=== PATIENT | male | born 1965 | race Two or more races ===

== ENCOUNTER 2023-09-13 12:20 | Inpatient (IN) | payer OTHER ==
[2023-09-13 13:30] VITALS: BMI 19.1
[2023-09-13] MEDS ORDERED: IBUPROFEN 600 MG TABLET (FP) PO PRN (15:01)
[2023-09-13] MEDS ORDERED: DICYCLOMINE HCL 10 MG CAPSULE PO PRN (15:01)
[2023-09-13] MEDS ORDERED: MAGNESIUM HYDROX 2400MG/30ML ORAL SUSPENSION 30 ML CUP PO PRN (15:01)
[2023-09-13] MEDS ORDERED: METHOCARBAMOL 500 MG TABLET PO PRN (15:01)
[2023-09-13] MEDS ORDERED: BENZOCAINE/MENTHOL (CHLORASEPTIC ) LOZENGE MM PRN (15:01)
[2023-09-13] MEDS ORDERED: POLYETHYLENE GLYCOL (HEALTHYLAX) 3350 17 GM PACKET PO PRN (15:01)
[2023-09-13] MEDS ORDERED: IBUPROFEN 400 MG TABLET (FP) PO PRN (15:01)
[2023-09-13] MEDS ORDERED: NALOXONE HCL 0.4 MG/ML VIAL IM PRN (15:01)
[2023-09-13] MEDS ORDERED: guaiFENesin 600 MG TABLET.ER (FP) PO PRN (15:01)
[2023-09-13] MEDS ORDERED: NALOXONE HCL (KLOXXADO) 8 MG SPRAY NS PRN (15:01)
[2023-09-13] MEDS ORDERED: BENZONATATE 200 MG CAPSULE PO PRN (15:01)
[2023-09-13] MEDS ORDERED: BISMUTH SUBSALICYLATE 524 MG/30 ML PO PRN (15:01)
[2023-09-13] MEDS ORDERED: MAG HYDROX/AL HYDROX/SIMETH 30 ML UNIT-DOSE CUP PO PRN (15:01)
[2023-09-13] MEDS ORDERED: ACETAMINOPHEN 325 MG TABLET (FP) PO PRN (15:01)
[2023-09-13] MEDS ORDERED: LOPERAMIDE HCL 2 MG CAPSULE PO PRN (15:01)
[2023-09-13] MEDS ORDERED: ONDANSETRON *ODT* 4 MG TABLET SL PRN (15:01)
[2023-09-13] MEDS: hydrOXYzine PAMOATE 25 MG CAPSULE (FP) PO PRN (17:46)
[2023-09-13] MEDS ORDERED: methaDONE HCL 10 MG TABLET (FOR DETOX USE ONLY) PO ONE (18:32)
[2023-09-13] MEDS ORDERED: TAMSULOSIN HCL 0.4 MG CAP PO SCH (22:00)
[2023-09-13] MEDS ORDERED: THIAMINE HCL 100 MG TABLET (FP) PO SCH (22:00)
[2023-09-13] MEDS ORDERED: MELATONIN 5 MG TABLETS PO SCH (22:00)
[2023-09-14] MEDS: cloNIDine HCL 0.1 MG TABLET PO PRN ×2 (01:06→09:21)
[2023-09-14] MEDS: hydrOXYzine PAMOATE 25 MG CAPSULE (FP) PO PRN ×2 (01:06→09:21)
[2023-09-14 09:35] VITALS: BP 134/99; PULSE 74; RESP 19; TEMP 97.3
[2023-09-14] MEDS ORDERED: PRENATAL VITAMINS W/ FOLIC ACID TABLET (FP) PO SCH (10:00)
[2023-09-14 10:15] LABS: POTASSIUM 3.8 mmol/L (3.5-5.1)
[2023-09-14 10:19] LABS: BLOOD UREA NITROGEN 11.3 mg/dL (7-18); CALCIUM 8.2 mg/dL (8.5-10.1)
[2023-09-14 10:20] LABS: ALBUMIN 2.4 g/dl (3.4-5.0)
[2023-09-14 10:22] LABS: HEMATOCRIT 35.1 % (35.4-49); HEMOGLOBIN 11.4 GM/dL (11.7-16.9); MCH 28.8 pg (25.7-33.7); MCHC 32.4 g/dl (32.0-35.9); MEAN CELL VOLUME 88.8 fl (80-96); MEAN PLT VOLUME 6.8 fl (7.5-11.1); PLATELET COUNT 417 10^3/uL (134-434); RBC 3.95 M/mm3 (4.00-5.60); RDW 14.5 % (11.9-15.9); WHITE BLOOD COUNT 4.1 K/mm3 (4.0-10.0)
[2023-09-14 10:23] LABS: CREATININE 0.7 mg/dL (0.55-1.3)
[2023-09-14 10:24] LABS: BILIRUBIN,TOTAL 0.4 mg/dL (0.2-1); TOT PROT 6.1 g/dl (6.4-8.2)
[2023-09-15] MEDS ORDERED: methaDONE HCL 10 MG TABLET (FOR DETOX USE ONLY) PO ONE (10:00)
[2023-09-17] MEDS ORDERED: methaDONE HCL 10 MG TABLET (FOR DETOX USE ONLY) PO ONE (10:00)
== END 2023-09-14 12:50 | disposition left against medical advice (07) | DRG 770 ==
LOC: YASAS 12:20 → Y6N 15:46
PROVIDERS: ADMIT Allergy & Immunology; ATTEND Surgery
PROC: HZ2ZZZZ Detoxification Services for Substance Abuse Treatment (ICD-10-PCS; principal; 2023-09-13)
DX: F11.23 Opioid dependence with withdrawal (principal); F17.210 Nicotine dependence, cigarettes, uncomplicated; Z59.00 Homelessness unspecified
CPT/HCPCS: 36415; 80053; 85027; 86780; 87635; 93005; 93010; Q0162

== ENCOUNTER 2024-03-03 16:34 | Observation (INO) | payer OTHER ==
[2024-03-03] MEDS: ONDANSETRON 4 MG TABLET PO ONE (21:44)
[2024-03-03 23:11] LABS: VENOUS BASE EXCESS 1.1 mmol/L (-2-2); VENOUS O2 SATURATION 46.8 % (70-80); VENOUS PH 7.389 (7.310-7.410)
[2024-03-03 23:13] LABS: BASO % 0.5 % (0-2.0); EOS % 0.1 % (0-4.5); HEMOGLOBIN 15.1 GM/dL (11.7-16.9); LYMPH % 8.6 % (8-40); MCH 28.5 pg (25.7-33.7); MCHC 32.8 g/dl (32.0-35.9); MEAN CELL VOLUME 86.8 fl (80-96); MEAN PLT VOLUME 6.6 fl (7.5-11.1); MONO % 4.8 % (3.8-10.2); PLATELET COUNT 338 10^3/uL (134-434); RDW 16.5 % (11.9-15.9); WHITE BLOOD COUNT 9.8 K/mm3 (4.0-10.0)
[2024-03-03 23:30] LABS: POTASSIUM 4.4 mmol/L (3.5-5.1)
[2024-03-03 23:31] LABS: CALCIUM 9.7 mg/dL (8.5-10.1)
[2024-03-03 23:32] LABS: ALBUMIN 3.6 g/dl (3.4-5.0); BLOOD UREA NITROGEN 16.2 mg/dL (7-18)
[2024-03-03 23:35] LABS: CREATININE 0.8 mg/dL (0.55-1.3)
[2024-03-03 23:37] LABS: BILIRUBIN,TOTAL 0.7 mg/dL (0.2-1); TOT PROT 7.7 g/dl (6.4-8.2)
[2024-03-04 03:31] VITALS: BMI 17.6
[2024-03-04] MEDS: TRIMETHOBENZAMIDE HCL 200MG/2ML INJ IM ONE (04:39)
[2024-03-04] MEDS: INSULIN ASPART SLIDING SCALE (NOVOLOG) 1 VIAL SQ SCH (07:17)
[2024-03-04] MEDS ORDERED: BISMUTH SUBSALICYLATE 524 MG/30 ML PO PRN (08:13)
[2024-03-04] MEDS ORDERED: NALOXONE HCL 0.4 MG/ML VIAL IM PRN (08:13)
[2024-03-04] MEDS ORDERED: NALOXONE HCL (KLOXXADO) 8 MG SPRAY NS PRN (08:13)
[2024-03-04] MEDS ORDERED: BENZOCAINE/MENTHOL (CHLORASEPTIC ) LOZENGE MM PRN (08:13)
[2024-03-04] MEDS ORDERED: MAGNESIUM HYDROX 2400MG/30ML ORAL SUSPENSION 30 ML CUP PO PRN (08:13)
[2024-03-04] MEDS ORDERED: guaiFENesin 600 MG TABLET.ER (FP) PO PRN (08:13)
[2024-03-04] MEDS ORDERED: DICYCLOMINE HCL 10 MG CAPSULE PO PRN (08:13)
[2024-03-04] MEDS ORDERED: METHOCARBAMOL 500 MG TABLET PO PRN (08:13)
[2024-03-04] MEDS ORDERED: MAG HYDROX/AL HYDROX/SIMETH 30 ML UNIT-DOSE CUP PO PRN (08:13)
[2024-03-04] MEDS ORDERED: BENZONATATE 200 MG CAPSULE PO PRN (08:13)
[2024-03-04] MEDS ORDERED: ONDANSETRON *ODT* 4 MG TABLET SL PRN (08:13)
[2024-03-04] MEDS ORDERED: hydrOXYzine PAMOATE 25 MG CAPSULE (FP) PO PRN (08:13)
[2024-03-04] MEDS: methaDONE HCL 10 MG TABLET PO ONE (09:02)
[2024-03-04] MEDS: ENOXAPARIN NA (PORCINE) 40 MG/0.4 ML DISP.SYRIN SQ SCH (09:02)
[2024-03-04] MEDS: THIAMINE HCL 100 MG TABLET (FP) PO SCH ×2 (09:04→23:09)
[2024-03-04] MEDS: FOLIC ACID 1 MG TABLET (FP) PO SCH (09:06)
[2024-03-04 09:54] LABS: BASO % 0.1 % (0-2.0); HEMATOCRIT 44.1 % (35.4-49); HEMOGLOBIN 14.7 GM/dL (11.7-16.9); LYMPH % 9.2 % (8-40); MCH 28.7 pg (25.7-33.7); MCHC 33.3 g/dl (32.0-35.9); MEAN CELL VOLUME 86.1 fl (80-96); MEAN PLT VOLUME 7.5 fl (7.5-11.1); MONO % 6.9 % (3.8-10.2); NEUT % 83.8 % (42.8-82.8); PLATELET COUNT 358 10^3/uL (134-434); RBC 5.13 M/mm3 (4.00-5.60); RDW 16.6 % (11.9-15.9); WHITE BLOOD COUNT 8.1 K/mm3 (4.0-10.0)
[2024-03-04] MEDS: FOLIC ACID INJECTION - 1 MG, THIAMINE HCL 100 MG, MULTIVIT INJECTION ADULT 10 ML in SOD... IVPB ONE (10:03)
[2024-03-04 10:15] LABS: POTASSIUM 3.6 mmol/L (3.5-5.1)
[2024-03-04 10:50] LABS: CALCIUM 9.4 mg/dL (8.5-10.1)
[2024-03-04 10:51] LABS: ALBUMIN 3.4 g/dl (3.4-5.0); BLOOD UREA NITROGEN 16.9 mg/dL (7-18)
[2024-03-04 10:54] LABS: CREATININE 0.7 mg/dL (0.55-1.3); PHOSPHOROUS 3.2 mg/dL (2.5-4.9)
[2024-03-04 10:55] LABS: BILIRUBIN,TOTAL 0.6 mg/dL (0.2-1); TOT PROT 7.2 g/dl (6.4-8.2)
[2024-03-04] MEDS: AMINO ACIDS/PROTEIN HYDROLYS 30 ML LIQUID.PKT PO SCH (11:47)
[2024-03-04] MEDS: FLUoxetine HCL 20 MG CAPSULE PO SCH (12:24)
[2024-03-04] MEDS: PRENATAL VITAMINS W/ FOLIC ACID TABLET (FP) PO SCH (12:24)
[2024-03-04] MEDS: ACETAMINOPHEN 325 MG TABLET (FP) PO PRN (12:26)
[2024-03-04] MEDS: IBUPROFEN 600 MG TABLET (FP) PO PRN (14:06)
[2024-03-04] MEDS: hydrALAZINE HCL 25 MG TABLET (FP) PO PRN (14:06)
[2024-03-04] MEDS: cloNIDine HCL 0.1 MG TABLET PO PRN (15:36)
[2024-03-04] MEDS: TAMSULOSIN HCL 0.4 MG CAP PO SCH (23:09)
[2024-03-04] MEDS: MELATONIN 5 MG TABLETS PO SCH (23:09)
[2024-03-05 03:42] LABS: URINE APPEARANCE CLEAR; URINE BILIRUBIN NEGATIVE (NEGATIVE); URINE COLOR YELLOW; URINE GLUCOSE (UA) NEGATIVE (NEGATIVE); URINE KETONE NEGATIVE (NEGATIVE); URINE LEUK ESTERASE NEGATIVE (NEGATIVE); URINE NITRITE NEGATIVE (NEGATIVE); URINE PROTEIN NEGATIVE (NEGATIVE)
[2024-03-05 03:54] LABS: URINE AMPHETAMINES NEGATIVE (NEGATIVE)
[2024-03-05 03:55] LABS: OPIATES, URI NEGATIVE (NEGATIVE); PHENCYCLIDINE,URINE NEGATIVE (NEGATIVE); URINE BARBITURATES NEGATIVE (NEGATIVE); URINE BENZODIAZEPINES NEGATIVE (NEGATIVE)
[2024-03-05 04:06] LABS: COCAINE, UR POSITIVE (NEGATIVE)
[2024-03-05 04:07] LABS: METHADONE, UR POSITIVE (NEGATIVE)
[2024-03-05 09:50] LABS: BASO % 0.3 % (0-2.0); EOS % 0.3 % (0-4.5); HEMATOCRIT 40.4 % (35.4-49); HEMOGLOBIN 12.9 GM/dL (11.7-16.9); MEAN CELL VOLUME 87.7 fl (80-96); MEAN PLT VOLUME 7.3 fl (7.5-11.1); MONO % 7.9 % (3.8-10.2); NEUT % 74.5 % (42.8-82.8); PLATELET COUNT 297 10^3/uL (134-434); RBC 4.61 M/mm3 (4.00-5.60); RDW 16.7 % (11.9-15.9); WHITE BLOOD COUNT 6.7 K/mm3 (4.0-10.0)
[2024-03-05 10:29] LABS: CALCIUM 8.7 mg/dL (8.5-10.1)
[2024-03-05 10:30] LABS: ALBUMIN 2.8 g/dl (3.4-5.0); BLOOD UREA NITROGEN 22.2 mg/dL (7-18); MAGNESIUM 1.8 mg/dL (1.8-2.4)
[2024-03-05 10:33] LABS: CREATININE 0.9 mg/dL (0.55-1.3)
[2024-03-05 10:35] LABS: BILIRUBIN,TOTAL 0.5 mg/dL (0.2-1)
[2024-03-05] MEDS: methaDONE HCL 10 MG TABLET PO ONE ×3 (13:04→22:12)
[2024-03-05 14:38] VITALS: RESP 18
[2024-03-05] MEDS: LOPERAMIDE HCL 2 MG CAPSULE PO PRN (22:12)
[2024-03-05] MEDS: IBUPROFEN 400 MG TABLET (FP) PO PRN (22:13)
[2024-03-06] MEDS: methaDONE HCL 10 MG TABLET PO ONE ×2 (06:32→08:36)
[2024-03-06 07:38] VITALS: BP 121/78; PULSE 67; TEMP 97.8
[2024-03-06 08:57] LABS: BASO % 0.4 % (0-2.0); EOS % 1.8 % (0-4.5); HEMATOCRIT 37.4 % (35.4-49); HEMOGLOBIN 12.1 GM/dL (11.7-16.9); LYMPH % 14.1 % (8-40); MCH 28.6 pg (25.7-33.7); MCHC 32.3 g/dl (32.0-35.9); MEAN CELL VOLUME 88.5 fl (80-96); MEAN PLT VOLUME 7.3 fl (7.5-11.1); MONO % 9.9 % (3.8-10.2); NEUT % 73.8 % (42.8-82.8); PLATELET COUNT 267 10^3/uL (134-434); RBC 4.23 M/mm3 (4.00-5.60); RDW 16.5 % (11.9-15.9); WHITE BLOOD COUNT 6.1 K/mm3 (4.0-10.0)
[2024-03-06 09:11] LABS: POTASSIUM 4.3 mmol/L (3.5-5.1)
[2024-03-06 09:16] LABS: BLOOD UREA NITROGEN 25.5 mg/dL (7-18); CALCIUM 8.1 mg/dL (8.5-10.1)
[2024-03-06 09:17] LABS: ALBUMIN 2.7 g/dl (3.4-5.0)
[2024-03-06 09:19] LABS: CREATININE 0.7 mg/dL (0.55-1.3)
[2024-03-06 09:20] LABS: BILIRUBIN,TOTAL 0.3 mg/dL (0.2-1); TOT PROT 5.7 g/dl (6.4-8.2)
== END 2024-03-06 10:28 | disposition left against medical advice (07) ==
LOC: JER 16:34 → JERBED 03-04 00:42 → J5S 03-04 02:40
PROVIDERS: ADMIT Internal Medicine; ATTEND Internal Medicine
PROC: 3E033GC Introduction of Other Therapeutic Substance into Peripheral Vein, Percutaneous Approach (ICD-10-PCS; principal; 2024-03-04)
PROC: 3E0337Z Introduction of Electrolytic and Water Balance Substance into Peripheral Vein, Percutaneous Approach (ICD-10-PCS; 2024-03-04)
DX: T40.2X1A Poisoning by other opioids, accidental (unintentional), initial encounter (principal); X58.XXXA Exposure to other specified factors, initial encounter; Y99.8 Other external cause status; F19.20 Other psychoactive substance dependence, uncomplicated; E46 Unspecified protein-calorie malnutrition; F14.929 Cocaine use, unspecified with intoxication, unspecified; F11.90 Opioid use, unspecified, uncomplicated; B19.20 Unspecified viral hepatitis C without hepatic coma; F10.20 Alcohol dependence, uncomplicated; F17.210 Nicotine dependence, cigarettes, uncomplicated; G92.8 Other toxic encephalopathy
CPT/HCPCS: 36415; 80048; 80053; 80307; 81003; 82803; 82962; 83036; 83735; 84100; 85025; 86708; 86803; 87086; 87350; 87522; 93005; 93010; 96361; 96365; 99285-25; G0378

== ENCOUNTER 2024-06-15 11:47 | Inpatient (IN) | payer OTHER ==
[2024-06-15 12:13] VITALS: BMI 19.5
[2024-06-15] MEDS ORDERED: MAG HYDROX/AL HYDROX/SIMETH 30 ML UNIT-DOSE CUP PO PRN (12:54)
[2024-06-15] MEDS ORDERED: ACETAMINOPHEN 325 MG TABLET (FP) PO PRN (12:54)
[2024-06-15] MEDS ORDERED: LOPERAMIDE HCL 2 MG CAPSULE PO PRN (12:54)
[2024-06-15] MEDS ORDERED: DICYCLOMINE HCL 10 MG CAPSULE PO PRN (12:54)
[2024-06-15] MEDS ORDERED: NICOTINE POLACRILEX 2 MG GUM BUC PRN (12:54)
[2024-06-15] MEDS ORDERED: guaiFENesin 600 MG TABLET.ER (FP) PO PRN (12:54)
[2024-06-15] MEDS ORDERED: IBUPROFEN 600 MG TABLET (FP) PO PRN (12:54)
[2024-06-15] MEDS ORDERED: ONDANSETRON *ODT* 4 MG TABLET SL PRN (12:54)
[2024-06-15] MEDS ORDERED: NALOXONE (NARCAN) HCL 4 MG/0.1 ML SPRAY NS PRN (12:54)
[2024-06-15] MEDS ORDERED: IBUPROFEN 400 MG TABLET (FP) PO PRN (12:54)
[2024-06-15] MEDS ORDERED: NICOTINE POLACRILEX 2 MG LOZENGE BC PRN (12:54)
[2024-06-15] MEDS ORDERED: POLYETHYLENE GLYCOL (HEALTHYLAX) 3350 17 GM PACKET PO PRN (12:54)
[2024-06-15] MEDS ORDERED: BISMUTH SUBSALICYLATE 524 MG/30 ML PO PRN (12:54)
[2024-06-15] MEDS ORDERED: NALOXONE HCL 0.4 MG/ML VIAL IM PRN (12:54)
[2024-06-15] MEDS ORDERED: BENZONATATE 200 MG CAPSULE PO PRN (12:54)
[2024-06-15] MEDS ORDERED: BENZOCAINE/MENTHOL (CHLORASEPTIC ) LOZENGE MM PRN (12:54)
[2024-06-15] MEDS ORDERED: MAGNESIUM HYDROX 2400MG/30ML ORAL SUSPENSION 30 ML CUP PO PRN (12:54)
[2024-06-15] MEDS: cloNIDine HCL 0.1 MG TABLET PO PRN (15:38)
[2024-06-15] MEDS: THIAMINE 100 MG TABLET PO SCH (23:07)
[2024-06-15] MEDS: MELATONIN 5 MG TABLETS PO SCH (23:07)
[2024-06-15] MEDS: TAMSULOSIN HCL 0.4 MG CAP PO SCH (23:07)
[2024-06-15] MEDS: METHOCARBAMOL 500 MG TABLET PO PRN (23:32)
[2024-06-16] MEDS: methaDONE HCL 10 MG TABLET (FOR DETOX USE ONLY) PO ONE (09:45)
[2024-06-16] MEDS: PRENATAL VITAMINS W/ FOLIC ACID TABLET (FP) PO SCH (09:47)
[2024-06-16] MEDS: hydrOXYzine PAMOATE 25 MG CAPSULE (FP) PO PRN (09:47)
[2024-06-16] MEDS: cloNIDine HCL 0.1 MG TABLET PO PRN (09:49)
[2024-06-16 11:40] LABS: POTASSIUM 3.6 mmol/L (3.5-5.1)
[2024-06-16 11:50] LABS: HEMATOCRIT 39.8 % (35.4-49); MCH 29.1 pg (25.7-33.7); MCHC 32.6 g/dl (32.0-35.9); MEAN CELL VOLUME 89.1 fl (80-96); MEAN PLT VOLUME 7.7 fl (7.5-11.1); PLATELET COUNT 341 10^3/uL (134-434); RBC 4.47 M/mm3 (4.00-5.60); RDW 14.2 % (11.9-15.9)
[2024-06-16 11:56] LABS: TOT PROT 6.7 g/dl (6.4-8.2)
[2024-06-16 12:04] LABS: ALBUMIN 3.2 g/dl (3.4-5.0)
[2024-06-16 12:11] LABS: CALCIUM 9.2 mg/dL (8.5-10.1)
[2024-06-16 12:25] LABS: CREATININE 0.8 mg/dL (0.55-1.3)
[2024-06-16 12:26] LABS: BILIRUBIN,TOTAL 0.6 mg/dL (0.2-1)
[2024-06-17] MEDS: P-EPHED 60MG/TRIPROLIDI 2.5MG TABLET PO PRN (10:46)
[2024-06-18] MEDS: methaDONE HCL 10 MG TABLET (FOR DETOX USE ONLY) PO ONE (09:36)
[2024-06-18] MEDS: CARBAMIDE PEROXIDE 6.5% OTIC 15 ML BOTTLE AU SCH (12:44)
[2024-06-19 12:37] VITALS: RESP 16
[2024-06-19 16:56] VITALS: BP 134/84; PULSE 85; TEMP 99.3
[2024-06-19] MEDS ORDERED: BACITRACIN ZINC 15 GM TUBE TOPICAL OINTMENT TP SCH (22:00)
[2024-06-19] MEDS ORDERED: CEPHALEXIN MONOHYDRATE 500 MG CAPSULE (UD) PO SCH (22:00)
[2024-06-20] MEDS ORDERED: methaDONE HCL 10 MG TABLET (FOR DETOX USE ONLY) PO ONE (10:00)
== END 2024-06-19 16:51 | disposition home or self-care (01) | DRG 773 ==
LOC: YASAS 11:47 → Y3N 14:04
PROVIDERS: ADMIT Allergy & Immunology; ATTEND Surgery
PROC: HZ2ZZZZ Detoxification Services for Substance Abuse Treatment (ICD-10-PCS; principal; 2024-06-15)
DX: F10.230 Alcohol dependence with withdrawal, uncomplicated (principal); F11.20 Opioid dependence, uncomplicated; F14.20 Cocaine dependence, uncomplicated; F12.20 Cannabis dependence, uncomplicated; F17.210 Nicotine dependence, cigarettes, uncomplicated; N40.0 Benign prostatic hyperplasia without lower urinary tract symptoms
CPT/HCPCS: 36415; 80053; 80305; 80307; 85027; 86780

== ENCOUNTER 2024-09-13 08:40 | Inpatient (IN) | payer OTHER ==
[2024-09-13 09:13] VITALS: BMI 20.9
[2024-09-13] MEDS ORDERED: POLYETHYLENE GLYCOL (HEALTHYLAX) 3350 17 GM PACKET PO PRN (09:38)
[2024-09-13] MEDS ORDERED: BENZOCAINE/MENTHOL (CHLORASEPTIC ) LOZENGE MM PRN (09:38)
[2024-09-13] MEDS ORDERED: NALOXONE (NYS OPIOID OVERDOSE PROGRAM) 4 MG/0.1 ML SPRAY NS PRN (09:38)
[2024-09-13] MEDS ORDERED: BISMUTH SUBSALICYLATE 262 MG/15 ML BTL PO PRN (09:38)
[2024-09-13] MEDS ORDERED: IBUPROFEN 400 MG TABLET (FP) PO PRN (09:38)
[2024-09-13] MEDS ORDERED: BENZONATATE 200 MG CAPSULE PO PRN (09:38)
[2024-09-13] MEDS ORDERED: NICOTINE POLACRILEX 2 MG GUM BUC PRN (09:38)
[2024-09-13] MEDS ORDERED: LOPERAMIDE HCL 2 MG CAPSULE PO PRN (09:38)
[2024-09-13] MEDS ORDERED: guaiFENesin 600 MG TABLET.ER (FP) PO PRN (09:38)
[2024-09-13] MEDS ORDERED: ONDANSETRON *ODT* 4 MG TABLET SL PRN (09:38)
[2024-09-13] MEDS ORDERED: MAG HYDROX/AL HYDROX/SIMETH 30 ML UNIT-DOSE CUP PO PRN (09:38)
[2024-09-13] MEDS ORDERED: MAGNESIUM HYDROX 2400MG/30ML ORAL SUSPENSION 30 ML CUP PO PRN (09:38)
[2024-09-13] MEDS ORDERED: NALOXONE (NARCAN) HCL 4 MG/0.1 ML SPRAY NS PRN (09:38)
[2024-09-13] MEDS ORDERED: DICYCLOMINE HCL 10 MG CAPSULE PO PRN (09:38)
[2024-09-13] MEDS ORDERED: cloNIDine HCL 0.1 MG TABLET ONE (10:22)
[2024-09-13] MEDS: cloNIDine HCL 0.1 MG TABLET PO PRN (10:25)
[2024-09-13] MEDS: PRENATAL VITAMINS W/ FOLIC ACID TABLET (FP) PO SCH (10:46)
[2024-09-13] MEDS: methaDONE HCL 10 MG TABLET (FOR DETOX USE ONLY) PO ONE (11:07)
[2024-09-13] MEDS: hydrOXYzine PAMOATE 25 MG CAPSULE (FP) PO PRN (11:07)
[2024-09-13] MEDS: METHOCARBAMOL 500 MG TABLET PO PRN (11:08)
[2024-09-13] MEDS ORDERED: methaDONE HCL 10 MG TABLET (FOR DETOX USE ONLY) PO ONE ×2 (12:00→17:00)
[2024-09-13] MEDS: TAMSULOSIN HCL 0.4 MG CAP PO SCH (22:16)
[2024-09-13] MEDS: THIAMINE 100 MG TABLET PO SCH (22:17)
[2024-09-13] MEDS: MELATONIN 5 MG TABLETS PO SCH (22:17)
[2024-09-14] MEDS: IBUPROFEN 600 MG TABLET (FP) PO PRN (10:58)
[2024-09-14] MEDS: METHOCARBAMOL 500 MG TABLET PO PRN (14:32)
[2024-09-14 15:03] LABS: BASO % 0.8 % (0-2.0); EOS % 0.9 % (0-4.5); HEMATOCRIT 41.4 % (35.4-49); LYMPH % 15.6 % (8-40); MCH 27.5 pg (25.7-33.7); MCHC 31.5 g/dl (32.0-35.9); MEAN CELL VOLUME 87.4 fl (80-96); MEAN PLT VOLUME 7.3 fl (7.5-11.1); MONO % 5.1 % (3.8-10.2); NEUT % 77.6 % (42.8-82.8); PLATELET COUNT 359 10^3/uL (134-434); RBC 4.74 M/mm3 (4.00-5.60); RDW 14.8 % (11.9-15.9); WHITE BLOOD COUNT 5.9 K/mm3 (4.0-10.0)
[2024-09-14 15:37] LABS: POTASSIUM 4.3 mmol/L (3.5-5.1)
[2024-09-14 15:42] LABS: BLOOD UREA NITROGEN 15.3 mg/dL (7-18); CALCIUM 9.3 mg/dL (8.5-10.1)
[2024-09-14 15:45] LABS: CREATININE 0.8 mg/dL (0.55-1.3)
[2024-09-15] MEDS: ACETAMINOPHEN 325 MG TABLET (FP) PO PRN (03:52)
[2024-09-15] MEDS: methaDONE HCL 10 MG TABLET (FOR DETOX USE ONLY) PO ONE (10:23)
[2024-09-15] MEDS: diazePAM 5 MG TABLET PO PRN (10:50)
[2024-09-15] MEDS: NICOTINE POLACRILEX 4 MG GUM BUC PRN (11:15)
[2024-09-15] MEDS: FLU VACCINE (FLULAVAL) PF 45 MCG/0.5 ML SYRINGE 2024-2025 IM ONE (12:00)
[2024-09-16 10:05] VITALS: BP 122/75; PULSE 91; RESP 18; TEMP 97.5
[2024-09-16] MEDS: cloNIDine HCL 0.1 MG TABLET PO PRN (11:21)
[2024-09-16] MEDS: hydrOXYzine PAMOATE 50 MG CAPSULE (FP) PO PRN (12:26)
[2024-09-16] MEDS ORDERED: QUEtiapine FUMARATE 100 MG TABLET (FP) PO SCH (22:00)
[2024-09-17] MEDS ORDERED: methaDONE HCL 10 MG TABLET (FOR DETOX USE ONLY) PO ONE (10:00)
== END 2024-09-16 12:54 | disposition left against medical advice (07) | DRG 773 ==
LOC: YASAS 08:40 → Y3N 10:34
PROVIDERS: ADMIT Allergy & Immunology; ATTEND Surgery
PROC: HZ2ZZZZ Detoxification Services for Substance Abuse Treatment (ICD-10-PCS; principal; 2024-09-13)
DX: F11.23 Opioid dependence with withdrawal (principal); F14.20 Cocaine dependence, uncomplicated; F17.210 Nicotine dependence, cigarettes, uncomplicated; F19.282 Other psychoactive substance dependence with psychoactive substance-induced sleep disorder; F19.24 Other psychoactive substance dependence with psychoactive substance-induced mood disorder; M54.50 Low back pain, unspecified; N40.0 Benign prostatic hyperplasia without lower urinary tract symptoms; F91.8 Other conduct disorders; Z91.199 Patient's noncompliance with other medical treatment and regimen due to unspecified reason; Z56.0 Unemployment, unspecified; Z59.00 Homelessness unspecified
CPT/HCPCS: 36415; 80048; 80305; 85025; 86780